=== PATIENT | male | born 1960 | race Two or more races ===

== ENCOUNTER → 2020-06-21 | Day surgery (SDC) | payer OTHER ==
[2020-06-15 15:55] LABS: BASOPHIL % 0.6 % (0-2); PLATELET COUNT 284 x10^3mcL (130-400)
[2020-06-15 15:57] LABS: RED CELL DISTRIBUTION WIDTH 14.8 % (11.5-14.5)
[2020-06-15 16:02] LABS: CALCIUM 9.1 mg/dL (8.5-10.1); CARBON DIOXIDE 29.3 mmol/L (21-32); POTASSIUM SERUM 3.9 mmol/L (3.5-5.1)
--- NOTE | 2020-06-15 16:30 | NUR ---
LAB RESULTS, EKG AND CXR RESULTS FAXED TO DR HENDERSON'S OFFICE AND COPIES TO OR FOR ANESTHESIA TO REVIEW.
[2020-06-15 17:01] LABS: UA SPECIFIC GRAVITY >=1.030 (1.005-1.035); microscopic required? YES; urine erythrocyte 2+ (NEGATIVE)
--- NOTE | 2020-06-15 18:00 | NUR ---
TEST RESULTS REVIEWED BY RODRIGUE ZENDEJAS FOR SURGERY. NO FURTHER ORDERS.
[~2020-06-21] VITALS: Ht 188 cm; Wt 120.2 kg
[2020-06-21 12:49] VITALS: BP 143/93
[2020-06-21 18:02] VITALS: BP 145/85
== END | disposition home or self-care (01) ==
LOC: DS 11:59 → OR 11:59
PROVIDERS: ATTEND Urology
DX: N20.2 Calculus of kidney with calculus of ureter (principal); F41.9 Anxiety disorder, unspecified; K21.9 Gastro-esophageal reflux disease without esophagitis; E78.00 Pure hypercholesterolemia, unspecified; E78.5 Hyperlipidemia, unspecified; I10 Essential (primary) hypertension; Z98.890 Other specified postprocedural states; Z79.899 Other long term (current) drug therapy; Z80.8 Family history of malignant neoplasm of other organs or systems
CPT/HCPCS: C1758; C1769; J0744; J2250; J3490; Q9967; Q9968; U0003-CS